=== PATIENT | male | born 1985 | race Caucasian/White ===

== ENCOUNTER 2020-08-01 09:39 | Outpatient (CLI) | payer OTHER, SELFPAY ==
--- NOTE | 2020-08-01 10:06 | FL_ITS ---
WS: [id number] UPPER GI TECHNICAL: Double contrast upper GI with thin and thick barium. FLUOROSCOPY TIME: 4.7 minutes CLINICAL INFORMATION: DYSPHAGIA COMPARISON: None. FINDINGS: Swallowing: No evidence of aspiration or penetration. Esophagus: Normal caliber and motility. Normal emptying. No evidence of high-grade stricture or mass. Gastroesophageal reflux: Moderate reflux to the midesophagus Stomach: Mild rugal fold thickening consistent with gastritis. Otherwise normal double contrast stoma ch. Duodenum: Normal duodenal C-loop. Other findings: None. [place]/[facility] upper GI series [id number] IMPRESSION: 1. Moderate reflux is seen into the mid esophagus on the supine imaging. 2. Mild gastritis with rugal fold thickening. 3. No evidence of high-grade stricture or obstructing mass esophagus. 4. No significant hiatal hernia. 5. Otherwise normal double contrast stomach and duodenum.
== END 2020-08-01 09:40 | disposition home or self-care (01) ==
LOC: RADWPI 09:44
PROVIDERS: PCP Family Medicine; Visit Provider Nurse Practitioner Family
DX: R13.10 Dysphagia, unspecified (principal); K29.70 Gastritis, unspecified, without bleeding; K21.9 Gastro-esophageal reflux disease without esophagitis
CPT/HCPCS: 74240

== ENCOUNTER → 2021-04-26 15:51 | Outpatient (BNVA) | payer OTHER, SELFPAY | PROVIDERS: PCP Family Medicine; Visit Provider Registered Nurse Neonatal Intensive Care | DX: J02.9 Acute pharyngitis, unspecified (principal); L25.9 Unspecified contact dermatitis, unspecified cause | CPT/HCPCS: 87880 ==

== ENCOUNTER → 2023-04-24 08:15 | Outpatient (BNVA) | payer OTHER, SELFPAY | PROVIDERS: PCP Family Medicine; Visit Provider Family Medicine | DX: Z00.00 Encounter for general adult medical examination without abnormal findings (principal); I10 Essential (primary) hypertension; Z13.6 Encounter for screening for cardiovascular disorders | CPT/HCPCS: 80053; 80061 ==